=== PATIENT | male | born 1975 | race African-American/Black ===

== ENCOUNTER 2023-10-16 00:57 | Emergency (ER) | payer SELFPAY ==
[~2023-10-16] VITALS: Ht 185.4 cm; Wt 80.0 kg
[2023-10-16 01:01] VITALS: TEMP 97.6; O2SAT 96
[2023-10-16] MEDS: SODIUM CHLORIDE 0.9% 1,000 ML IV ONE (03:30)
[2023-10-16 03:41] LABS: BASOPHILS % 0.7 % (0.0-2.0); DIFFERENTIAL COMMENT 0; EOSINOPHILS % 4.4 % (0.0-5.0); HEMATOCRIT. 44.9 % (42.0-52.0); HEMOGLOBIN. 15.1 g/dL (14.0-18.0); LYMPHOCYTES % 42.1 % (20.0-50.0); MEAN CORPUSCULAR HEMOGLOBIN 33.7 pg (28.0-32.0); MEAN CORPUSCULAR HGB CONC 33.6 g/dL (31.0-37.0); MEAN CORPUSCULAR VOLUME 100.4 fL (80.0-94.0); MEAN PLATELET VOLUME 8.8 fl (7.4-10.4); MONOCYTES % 6.7 % (2.0-8.0); NEUTROPHILS % 46.1 % (40.0-76.0); PLATELET 184 x1000/uL (130-400); RED BLOOD CELL COUNT 4.47 mill/uL (4.7-6.1); RED CELL DISTRIBUTION WIDTH 15.9 % (11.6-14.6); WHITE BLOOD COUNT 5.4 x1000/uL (4.5-11.0)
[2023-10-16 04:09] LABS: CHLORIDE 110 mEq/L (98-107); POTASSIUM 3.5 mEq/L (3.5-5.1); SODIUM 145 mEq/L (136-145)
[2023-10-16 04:10] LABS: CARBON DIOXIDE 27 mEq/L (21-32)
[2023-10-16 04:11] LABS: CALCIUM 8.8 mg/dL (8.7-10.4)
[2023-10-16 04:15] LABS: CREATININE 0.8 mg/dL (0.6-1.3)
[2023-10-16 04:16] LABS: GLUCOSE 105 mg/dL (70-105)
[2023-10-16 04:32] LABS: UREA NITROGEN BLOOD < 5 mg/dL (9-23)
[2023-10-16 04:34] LABS: ETHANOL BLOOD 431 mg/dL (<10)
[2023-10-16 10:01] VITALS: BP 116/75; PULSE 77; RESP 16
== END 2023-10-16 10:25 | disposition home or self-care (01) ==
LOC: ER 01:09
DX: F10.129 Alcohol abuse with intoxication, unspecified (principal); F19.90 Other psychoactive substance use, unspecified, uncomplicated; R51.9 Headache, unspecified; Z85.9 Personal history of malignant neoplasm, unspecified; Y90.8 Blood alcohol level of 240 mg/100 ml or more
CPT/HCPCS: 80048; 80320; 85025; 36415; 71045; 72070; 72100; 70450; 72125; 96360; 99285; J7030; Z7610; G0480

== ENCOUNTER 2023-11-12 01:07 | Emergency (ER) | payer SELFPAY ==
[~2023-11-12] VITALS: Ht 177.8 cm; Wt 64.0 kg
[2023-11-12 01:09] VITALS: O2SAT 98
[2023-11-12] MEDS: SODIUM CHLORIDE 0.9% 1,000 ML IV ONE (01:58)
[2023-11-12 02:01] LABS: BASOPHILS % 0.6 % (0.0-2.0); EOSINOPHILS % 2.2 % (0.0-5.0); HEMOGLOBIN. 15.8 g/dL (14.0-18.0); LYMPHOCYTES % 25.7 % (20.0-50.0); MEAN CORPUSCULAR HEMOGLOBIN 33.5 pg (28.0-32.0); MEAN CORPUSCULAR HGB CONC 33.5 g/dL (31.0-37.0); MEAN CORPUSCULAR VOLUME 99.9 fL (80.0-94.0); MEAN PLATELET VOLUME 8.8 fl (7.4-10.4); MONOCYTES % 5.5 % (2.0-8.0); PLATELET 240 x1000/uL (130-400); RED CELL DISTRIBUTION WIDTH 14.2 % (11.6-14.6)
[2023-11-12 02:06] LABS: CHLORIDE 108 mEq/L (98-107); POTASSIUM 3.5 mEq/L (3.5-5.1); SODIUM 143 mEq/L (136-145)
[2023-11-12 02:07] LABS: CARBON DIOXIDE 24 mEq/L (21-32)
[2023-11-12 02:08] LABS: CALCIUM 8.5 mg/dL (8.7-10.4)
[2023-11-12 02:12] LABS: CREATININE 0.8 mg/dL (0.6-1.3)
[2023-11-12 02:13] LABS: GLUCOSE 79 mg/dL (70-105); UREA NITROGEN BLOOD 7 mg/dL (9-23)
[2023-11-12 02:14] LABS: LACTIC ACID 2.9 mmol/L (0.4-2.0); TROPONIN I HIGH SENSITIVITY 7 ng/L (3.0-53)
[2023-11-12 02:15] LABS: AMMONIA 33 uMol/L (<32)
[2023-11-12 02:43] LABS: ETHANOL BLOOD 491 mg/dL (<10)
[2023-11-12 07:05] VITALS: TEMP 98.5
[2023-11-12 10:36] VITALS: BP 131/85; PULSE 80; RESP 17; O2SAT 100
== END 2023-11-12 10:37 | disposition home or self-care (01) ==
LOC: ER 01:15
DX: T51.0X1A Toxic effect of ethanol, accidental (unintentional), initial encounter (principal); G93.40 Encephalopathy, unspecified; Y92.89 Other specified places as the place of occurrence of the external cause; Z85.9 Personal history of malignant neoplasm, unspecified
CPT/HCPCS: 80048; 80320; 82140; 83605; 85025; 84484; 36415; 71045; 70450; 93005; 96360; 99285; J7030; G0480

== ENCOUNTER 2024-02-12 10:19 | Emergency (ER) | payer MEDICAID ==
[~2024-02-12] VITALS: Ht 182.9 cm; Wt 75.0 kg
[2024-02-12 10:25] VITALS: TEMP 98.4; O2SAT 96
[2024-02-12 12:00] VITALS: BP 116/84; PULSE 89; RESP 16; O2SAT 96
== END 2024-02-12 12:16 | disposition home or self-care (01) ==
LOC: ER 10:25
DX: F19.90 Other psychoactive substance use, unspecified, uncomplicated (principal); F31.9 Bipolar disorder, unspecified; F10.20 Alcohol dependence, uncomplicated; Z85.9 Personal history of malignant neoplasm, unspecified; Z98.890 Other specified postprocedural states; Y90.9 Presence of alcohol in blood, level not specified
CPT/HCPCS: 99284

== ENCOUNTER 2024-02-26 15:23 | Emergency (ER) | payer MEDICAID ==
[~2024-02-26] VITALS: Ht 172.7 cm; Wt 72.0 kg
[2024-02-26 15:28] VITALS: O2SAT 99
[2024-02-26 18:01] LABS: BASOPHILS % 0.6 % (0.0-2.0); EOSINOPHILS % 0.9 % (0.0-5.0); HEMATOCRIT. 43.5 % (42.0-52.0); HEMOGLOBIN. 14.2 g/dL (14.0-18.0); LYMPHOCYTES % 14.6 % (20.0-50.0); MEAN CORPUSCULAR HEMOGLOBIN 30.5 pg (28.0-32.0); MEAN CORPUSCULAR HGB CONC 32.8 g/dL (31.0-37.0); MEAN CORPUSCULAR VOLUME 93.2 fL (80.0-94.0); MEAN PLATELET VOLUME 9.2 fl (7.4-10.4); MONOCYTES % 6.6 % (2.0-8.0); NEUTROPHILS % 77.3 % (40.0-76.0); PLATELET 348 x1000/uL (130-400); RED BLOOD CELL COUNT 4.67 mill/uL (4.7-6.1); RED CELL DISTRIBUTION WIDTH 15.3 % (11.6-14.6); WHITE BLOOD COUNT 14.8 x1000/uL (4.5-11.0)
[2024-02-26 18:06] LABS: CARBON DIOXIDE 25 mEq/L (21-32); CHLORIDE 106 mEq/L (98-107); SODIUM 138 mEq/L (136-145)
[2024-02-26 18:07] LABS: CALCIUM 9.9 mg/dL (8.7-10.4)
[2024-02-26 18:12] LABS: CREATININE 0.9 mg/dL (0.6-1.3); GLUCOSE 114 mg/dL (70-105); UREA NITROGEN BLOOD 13 mg/dL (9-23)
[2024-02-26 18:13] LABS: ETHANOL BLOOD < 10 mg/dL (<10); TROPONIN I HIGH SENSITIVITY 5 ng/L (3.0-53)
[2024-02-26] MEDS ORDERED: GABA-1180 MT (19:24)
[2024-02-26 23:45] VITALS: BP 134/85; PULSE 90; RESP 16; TEMP 37.00296; O2SAT 96
== END 2024-02-27 00:09 | disposition home or self-care (01) ==
LOC: ER 15:23
DX: F16.10 Hallucinogen abuse, uncomplicated (principal); D72.829 Elevated white blood cell count, unspecified; R41.82 Altered mental status, unspecified; I10 Essential (primary) hypertension; I67.82 Cerebral ischemia
CPT/HCPCS: 36415; 71045; 73030; 80048; 80320; 82962; 84484; 85025; 93005; 99285; G0480